=== PATIENT | male | born 1995 | race Caucasian/White ===

== ENCOUNTER 2024-10-30 16:24 | Emergency (ER) | payer OTHER ==
[~2024-10-30] VITALS: Ht 175.3 cm; Wt 75.0 kg
[2024-10-30 16:27] VITALS: BP 142/96; PULSE 104; RESP 18; TEMP 36.6; O2SAT 98
== END 2024-10-30 16:42 | disposition left against medical advice (07) ==
LOC: ER 16:24
DX: R42 Dizziness and giddiness (principal); Z88.0 Allergy status to penicillin
CPT/HCPCS: 93005; 99283